=== PATIENT | male | born 1985 | race Two or more races ===

== ENCOUNTER 2018-09-14 16:12 | Emergency (ER) | payer OTHER ==
[~2018-09-14] VITALS: Ht 175.3 cm; Wt 108.9 kg
== END 2018-09-14 22:22 | disposition home or self-care (01) ==
LOC: ER 16:12
DX: S83.200A Bucket-handle tear of unspecified meniscus, current injury, right knee, initial encounter (principal); X50.0XXA Overexertion from strenuous movement or load, initial encounter; Y93.F9 Activity, other caregiving; Y92.89 Other specified places as the place of occurrence of the external cause; Y99.8 Other external cause status